=== PATIENT | female | born 1970 | race Caucasian/White ===

== ENCOUNTER 2021-12-26 13:38 | Inpatient (IN) | payer BC ==
[2021-12-26 14:05] LABS: #Lymphocytes 0.7 thou/uL (1.20-3.40); #Monocytes 0.7 thou/uL (0.11-0.59); %Monocytes 5.1 % (0.0-10.0); %Neutrophils 89.9 % (42.0-75.0); Hemoglobin 13.6 g/dL (12.0-16.0); Mean Corpuscular HGB CONC 33.9 g/dL (32.0-36.0); Mean Corpuscular Hemoglobin 32.2 pg (27.0-31.0); Mean Corpuscular Volume 94.8 fL (78.0-98.0); Platelet Count 163 thou/uL (130-400); RBC Distribution Width 11.4 % (11.5-14.5); Red Blood Cell (RBC) Count 4.21 mill/uL (4.20-5.40); White Blood Cell (WBC) Count 14.4 thou/uL (4.8-10.8)
[2021-12-26 14:24] LABS: ALT (SGPT) 20 U/L (8-55); AST (SGOT) 20 U/L (5-34); Alkaline Phosphatase 101 U/L (40-110); Anion Gap 15 mmol/L (10-20); BUN (Urea Nitrogen) 17 mg/dL (9.8-20.1); Bilirubin, Total 1.4 mg/dL (0.2-1.2); Calc. Creatinine Clearance 0 mL/min (70-130); Calcium 9.2 mg/dL (7.8-10.44); Carbon Dioxide 24 mmol/L (22-29); Chloride 102 mmol/L (98-107); Estimated GFR 58; Globulin 2.8 g/dL (2.4-3.5); Glucose 135 mg/dL (70-105); Potassium 3.8 mmol/L (3.5-5.1); Protein, Total 6.8 g/dL (6.0-8.3); Sodium 137 mmol/L (136-145)
[2021-12-26 14:46] LABS: CKMB 0.6 ng/mL (0-6.6)
[2021-12-26] MEDS ORDERED: Morphine 4 MG/ML VIAL ONE (14:56)
[2021-12-26] MEDS ORDERED: Ondansetron PF 4 MG/2 ML Vial ONE (14:57)
[2021-12-26] MEDS ORDERED: Aspirin Chewable 81 MG TAB ONE (14:57)
[2021-12-26 14:59] LABS: Bacteria/HPF 4+ HPF (None Seen); Bilirubin Negative (Negative); Blood, Urine 2+ (Negative); Clarity Turbid (Clear); Glucose, Urine (Dipstick) Normal (Negative); Ketone, Urine 20 mg/dL (Negative); Leukocyte 500 Leu/uL (Negative); Nitrite Negative (Negative); Protein, Urine (Dipstick) 20 mg/dL (Neg-Trace); Specific Gravity, Urine 1.015 (1.002-1.036); Squamous Epithelial 0-3 HPF (0-3); Urobilinogen Normal mg/dL (Less than 2); WBC/HPF Greater than 50 HPF (0-3); pH, Urine 5.5 (5.0-9.0)
[2021-12-26] MEDS ORDERED: Senokot S 8.6-50 MG TAB PO PRN (15:21)
[2021-12-26] MEDS ORDERED: HYDROcodone/Acetaminophen 5/325 mg Tablet PO PRN (15:21)
[2021-12-26] MEDS ORDERED: cefTRIAXone\\ROCEPHIN 2 GM VIAL ONE (15:22)
[2021-12-26] MEDS ORDERED: Nitroglycerin 0.4 MG TAB (25 Tab Bottle) SL PRN (15:25)
[2021-12-26] MEDS ORDERED: Acetaminophen 500 MG TAB ONE (16:23)
[2021-12-26 17:31] LABS: Troponin I 0.057 ng/mL (< 0.028)
[2021-12-26] MEDS: Ketorolac Tromethamine 30 MG/ML VIAL IVP SCH (18:27)
[2021-12-26] MEDS: Famotidine 20 MG TAB PO SCH (20:19)
[2021-12-26] MEDS: Sodium Chloride 0.9% 1,000 ML IV SCH (20:30)
[2021-12-26 21:27] LABS: Troponin I 0.038 ng/mL (< 0.028)
[2021-12-27 00:08] VITALS: BMI 27.8
[2021-12-27] MEDS: Ketorolac Tromethamine 30 MG/ML VIAL IVP SCH ×5 (00:18→23:29)
[2021-12-27] MEDS: Acetaminophen 325 MG TAB PO PRN ×3 (00:37→23:29)
[2021-12-27 02:32] LABS: #Lymphocytes 0.6 thou/uL (1.20-3.40); #Monocytes 0.6 thou/uL (0.11-0.59); #Neutrophils 7.6 thou/uL (1.40-6.50); %Basophils 0.1 % (0.0-1.0); %Eosinophils 0.1 % (0.0-10.0); %Lymphocytes 6.5 % (21.0-51.0); %Monocytes 7.1 % (0.0-10.0); %Neutrophils 86.2 % (42.0-75.0); Hemoglobin 12.2 g/dL (12.0-16.0); Mean Corpuscular HGB CONC 33.9 g/dL (32.0-36.0); Mean Corpuscular Hemoglobin 32.8 pg (27.0-31.0); Mean Corpuscular Volume 96.6 fL (78.0-98.0); Mean Platelet Volume 8.2 fL (7.4-10.4); Platelet Count 128 thou/uL (130-400); RBC Distribution Width 11.5 % (11.5-14.5); Red Blood Cell (RBC) Count 3.71 mill/uL (4.20-5.40); White Blood Cell (WBC) Count 8.8 thou/uL (4.8-10.8)
[2021-12-27 03:09] LABS: Anion Gap 13 mmol/L (10-20); BUN (Urea Nitrogen) 15 mg/dL (9.8-20.1); Calc. Creatinine Clearance 72 mL/min (70-130); Calcium 8.4 mg/dL (7.8-10.44); Carbon Dioxide 20 mmol/L (22-29); Chloride 109 mmol/L (98-107); Estimated GFR 72; Glucose 130 mg/dL (70-105); Potassium 3.8 mmol/L (3.5-5.1); Sodium 138 mmol/L (136-145)
[2021-12-27] MEDS: Sodium Chloride 0.9% 1,000 ML IV SCH ×3 (04:24→20:56)
[2021-12-27] MEDS: Aspirin Chewable 81 MG TAB PO SCH (09:59)
[2021-12-27] MEDS: Carvedilol 6.25 MG TAB PO SCH ×2 (09:59→20:56)
[2021-12-27] MEDS: Famotidine 20 MG TAB PO SCH ×2 (10:00→20:56)
[2021-12-27] MEDS: Enoxaparin Sodium 40 MG/0.4 ML SYRINGE SC SCH (10:02)
[2021-12-27] MEDS: Ondansetron PF 4 MG/2 ML Vial IVP PRN (16:21)
[2021-12-27] MEDS: cefTRIAXone\\ROCEPHIN 1 GM in Sodium Chloride 0.9% 100 ML IVPB SCH (16:22)
[2021-12-27] MEDS ORDERED: Morphine 2 MG/ML VIAL SLOW IVP PRN (17:58)
[2021-12-28] MEDS ORDERED: Aspirin/APAP/Caffeine Tab (Excedrin Migraine) PO SCH ×2 (00:30→10:30)
[2021-12-28] MEDS: Sodium Chloride 0.9% 1,000 ML IV SCH (04:23)
[2021-12-28] MEDS: Ketorolac Tromethamine 30 MG/ML VIAL IVP SCH ×4 (05:37→23:13)
[2021-12-28] MEDS: Enoxaparin Sodium 40 MG/0.4 ML SYRINGE SC SCH (10:01)
[2021-12-28] MEDS: Aspirin Chewable 81 MG TAB PO SCH (10:02)
[2021-12-28] MEDS: Carvedilol 6.25 MG TAB PO SCH ×2 (10:02→20:53)
[2021-12-28] MEDS: Famotidine 20 MG TAB PO SCH ×2 (10:02→20:53)
[2021-12-28] MEDS ORDERED: Furosemide 40 MG/4 ML VIAL SLOW IVP SCH (10:45)
[2021-12-28] MEDS: Aspirin/APAP/Caffeine Tab (Excedrin Migraine) PO SCH ×2 (15:36→20:53)
[2021-12-28] MEDS: cefTRIAXone\\ROCEPHIN 1 GM in Sodium Chloride 0.9% 100 ML IVPB SCH (17:32)
[2021-12-28] MEDS: Guaifenesin DM 100-10/5 ML UDCUP PO PRN (20:54)
[2021-12-28] MEDS: Ondansetron PF 4 MG/2 ML Vial IVP PRN (23:13)
[2021-12-29 04:42] LABS: Anion Gap 13 mmol/L (10-20); BUN (Urea Nitrogen) 19 mg/dL (9.8-20.1); Calc. Creatinine Clearance 80 mL/min (70-130); Calcium 8.7 mg/dL (7.8-10.44); Carbon Dioxide 22 mmol/L (22-29); Chloride 107 mmol/L (98-107); Estimated GFR 81; Glucose 119 mg/dL (70-105); Potassium 3.3 mmol/L (3.5-5.1); Sodium 139 mmol/L (136-145)
[2021-12-29 05:02] LABS: Band 29 % (5-11); Lymphocytes 4 % (21-51); MDiff Complete? YES; Mean Corpuscular HGB CONC 34.3 g/dL (32.0-36.0); Mean Corpuscular Hemoglobin 32.7 pg (27.0-31.0); Mean Corpuscular Volume 95.3 fL (78.0-98.0); Mean Platelet Volume 9.5 fL (7.4-10.4); Neutrophil 67 % (42-75); Platelet Count 95 thou/uL (130-400); Platelet Morphology Comment Appears Adequate; RBC Distribution Width 11.5 % (11.5-14.5); RBC Morphology Normal; Red Blood Cell (RBC) Count 3.68 mill/uL (4.20-5.40); White Blood Cell (WBC) Count 8.2 thou/uL (4.8-10.8)
[2021-12-29] MEDS: Ketorolac Tromethamine 30 MG/ML VIAL IVP SCH ×4 (06:54→23:10)
[2021-12-29] MEDS: Famotidine 20 MG TAB PO SCH ×2 (09:25→21:53)
[2021-12-29] MEDS: Aspirin/APAP/Caffeine Tab (Excedrin Migraine) PO SCH ×3 (09:25→21:53)
[2021-12-29] MEDS: Carvedilol 6.25 MG TAB PO SCH ×2 (09:25→21:53)
[2021-12-29] MEDS: Aspirin Chewable 81 MG TAB PO SCH (09:25)
[2021-12-29] MEDS ORDERED: Potassium Chloride 20 MEQ TAB PO SCH (10:15)
[2021-12-29] MEDS: Guaifenesin DM 100-10/5 ML UDCUP PO PRN (13:39)
[2021-12-29] MEDS ORDERED: Iopamidol 370 76% 100 ML VIAL ONE (13:56)
[2021-12-29] MEDS: Azithromycin 500 MG in Sodium Chloride 0.9% 250 ML 250 ML IVPB SCH (15:15)
[2021-12-29] MEDS: Ondansetron PF 4 MG/2 ML Vial IVP PRN ×2 (16:13→21:53)
[2021-12-29] MEDS: cefTRIAXone\\ROCEPHIN 1 GM in Sodium Chloride 0.9% 100 ML IVPB SCH (17:25)
[2021-12-29 21:46] LABS: Legionella Urinary Ag Negative (Negative); Strep pneumo Urine Ag NEGATIVE (NEGATIVE)
[2021-12-30 04:44] LABS: Anion Gap 12 mmol/L (10-20); BUN (Urea Nitrogen) 16 mg/dL (9.8-20.1); Calc. Creatinine Clearance 86 mL/min (70-130); Calcium 8.4 mg/dL (7.8-10.44); Carbon Dioxide 23 mmol/L (22-29); Chloride 108 mmol/L (98-107); Estimated GFR 88; Glucose 107 mg/dL (70-105); Potassium 3.9 mmol/L (3.5-5.1); Sodium 139 mmol/L (136-145)
[2021-12-30 05:11] LABS: #Eosinphils 0.1 thou/uL (0.0-0.7); #Lymphocytes 0.9 thou/uL (1.20-3.40); #Monocytes 0.8 thou/uL (0.11-0.59); #Neutrophils 6.5 thou/uL (1.40-6.50); %Basophils 0.2 % (0.0-1.0); %Eosinophils 0.7 % (0.0-10.0); %Lymphocytes 10.2 % (21.0-51.0); %Monocytes 9.9 % (0.0-10.0); Hemoglobin 11.4 g/dL (12.0-16.0); Mean Corpuscular Hemoglobin 32.5 pg (27.0-31.0); Mean Corpuscular Volume 95.4 fL (78.0-98.0); Mean Platelet Volume 10.1 fL (7.4-10.4); Platelet Count 78 thou/uL (130-400); RBC Distribution Width 11.8 % (11.5-14.5); Red Blood Cell (RBC) Count 3.51 mill/uL (4.20-5.40); White Blood Cell (WBC) Count 8.3 thou/uL (4.8-10.8)
[2021-12-30] MEDS: Ketorolac Tromethamine 30 MG/ML VIAL IVP SCH ×3 (05:13→14:34)
[2021-12-30] MEDS: Aspirin/APAP/Caffeine Tab (Excedrin Migraine) PO SCH ×2 (09:29→14:40)
[2021-12-30] MEDS: Famotidine 20 MG TAB PO SCH ×2 (09:30→21:48)
[2021-12-30] MEDS: Aspirin Chewable 81 MG TAB PO SCH (09:30)
[2021-12-30] MEDS: Carvedilol 6.25 MG TAB PO SCH ×2 (09:30→21:34)
[2021-12-30] MEDS: Ondansetron PF 4 MG/2 ML Vial IVP PRN ×2 (09:39→21:34)
[2021-12-30] MEDS: Azithromycin 500 MG in Sodium Chloride 0.9% 250 ML 250 ML IVPB SCH ×3 (14:40→21:34)
[2021-12-30] MEDS ORDERED: Aspirin/APAP/Caffeine Tab (Excedrin Migraine) PO PRN (17:22)
[2021-12-30] MEDS: Acetaminophen 325 MG TAB PO PRN (21:35)
[2021-12-30] MEDS: cefTRIAXone\\ROCEPHIN 1 GM in Sodium Chloride 0.9% 100 ML IVPB SCH (22:45)
[2021-12-31 05:23] LABS: #Eosinphils 0.1 thou/uL (0.0-0.7); #Lymphocytes 1.3 thou/uL (1.20-3.40); #Neutrophils 6.6 thou/uL (1.40-6.50); %Basophils 0.3 % (0.0-1.0); %Eosinophils 1.3 % (0.0-10.0); %Lymphocytes 14.1 % (21.0-51.0); %Monocytes 11.3 % (0.0-10.0); %Neutrophils 72.9 % (42.0-75.0); Hemoglobin 11.8 g/dL (12.0-16.0); Mean Corpuscular HGB CONC 34.2 g/dL (32.0-36.0); Mean Corpuscular Hemoglobin 32.5 pg (27.0-31.0); Mean Platelet Volume 10.1 fL (7.4-10.4); Platelet Count 122 thou/uL (130-400); RBC Distribution Width 11.9 % (11.5-14.5); Red Blood Cell (RBC) Count 3.63 mill/uL (4.20-5.40)
[2021-12-31] MEDS: Carvedilol 6.25 MG TAB PO SCH (09:00)
[2021-12-31] MEDS: Famotidine 20 MG TAB PO SCH (09:01)
[2021-12-31 11:39] VITALS: BP 144/73; TEMP 98.7
== END 2021-12-31 12:13 | disposition home or self-care (01) | DRG 871 ==
LOC: ERS 13:38 → ERHOLD 15:16 → 2NO 19:30
PROVIDERS: ADMIT Family Medicine; ATTEND Family Medicine
DX: A41.51 Sepsis due to Escherichia coli [E. coli] (principal); I21.A1 Myocardial infarction type 2; J81.0 Acute pulmonary edema; J15.9 Unspecified bacterial pneumonia; J96.01 Acute respiratory failure with hypoxia; N10 Acute pyelonephritis; N20.0 Calculus of kidney; Z20.822 Contact with and (suspected) exposure to COVID-19; I10 Essential (primary) hypertension; I25.10 Atherosclerotic heart disease of native coronary artery without angina pectoris; G43.909 Migraine, unspecified, not intractable, without status migrainosus; D69.6 Thrombocytopenia, unspecified; Z79.899 Other long term (current) drug therapy; Z90.710 Acquired absence of both cervix and uterus; Z87.442 Personal history of urinary calculi
CPT/HCPCS: 36415; 71045; 71275; 74176; 80048; 80053; 81003; 81015; 82553; 83605; 84145; 84484; 85025; 85379; 86140; 87040; 87070; 87077; 87086; 87186; 87205; 87449; 87899; 93005; 93306; 93970; 94760; J0456; J0696; J1650; J1885; J1940; J2270; J2405; J3490; J7050; Q9967; U0003; U0005

== ENCOUNTER 2022-01-11 15:57 | Outpatient (CLI) | payer BC ==
[2022-01-11 18:10] LABS: Bilirubin Neg (Negative); Blood, Urine 10 (Negative); Clarity Clear (Clear); Glucose, Urine (Dipstick) Normal (Negative); Ketone, Urine Negative (Negative); Leukocyte 500 (Negative); Nitrite Negative (Negative); Protein, Urine (Dipstick) Negative (Neg-Trace); Specific Gravity, Urine 1.015 (1.002-1.036); Urobilinogen Normal mg/dL (Less than 2)
[2022-01-11 18:41] LABS: Bacteria/HPF None Seen HPF (None Seen); RBC/HPF 0-3 HPF (0-3); Squamous Epithelial 0-3 HPF (0-3)
== END 2022-01-11 15:58 | disposition home or self-care (01) ==
LOC: LABBT 15:57
PROVIDERS: ATTEND Urology
DX: Z01.812 Encounter for preprocedural laboratory examination (principal); N20.0 Calculus of kidney; Z20.822 Contact with and (suspected) exposure to COVID-19
CPT/HCPCS: 81001; 87086; 87811

== ENCOUNTER 2022-01-16 06:06 | Day surgery (SDC) | payer BC ==
[2022-01-15 10:33] VITALS: BMI 26.4
[2022-01-16] MEDS ORDERED: Iopamidol 45 ML ONE (06:59)
[2022-01-16] MEDS ORDERED: Midazolam HCl 2 mg/2 ml Vial ONE (07:14)
[2022-01-16] MEDS ORDERED: Fentanyl 100 MCG/2 ML VIAL ONE ×2 (07:14→09:20)
[2022-01-16] MEDS ORDERED: HYDROmorphone 0.5 MG/0.5 ML SYRINGE ONE (07:24)
[2022-01-16] MEDS ORDERED: Levofloxacin 500 mg/D5W 100 ml Premix Bag ONE (07:27)
[2022-01-16] MEDS ORDERED: Dexamethasone 20 MG/5 ML VIAL ONE (07:31)
[2022-01-16] MEDS ORDERED: Ondansetron PF 4 MG/2 ML Vial ONE ×2 (07:31→09:09)
[2022-01-16] MEDS ORDERED: Rocuronium Bromide 10 MG/ML (10ML VIAL) ONE (07:31)
[2022-01-16] MEDS ORDERED: Lidocaine 1% PF 5 ML VIAL ONE (07:31)
[2022-01-16] MEDS ORDERED: Glycopyrrolate 0.2 MG/ML 5 ML SYRINGE ONE (07:31)
[2022-01-16] MEDS ORDERED: PROPOFOL 200 MG/20 ML VIAL ONE (07:31)
[2022-01-16] MEDS ORDERED: Ketorolac Tromethamine 30 MG/ML VIAL ONE ×2 (07:31→08:57)
[2022-01-16] MEDS ORDERED: SUGAMMADEX SODIUM 200 MG/2 ML VIAL ONE (08:30)
[2022-01-16] MEDS ORDERED: Phenazopyridine HCl 100 MG TAB ONE ×2 (08:57)
[2022-01-16] MEDS ORDERED: Oxybutynin 5 MG TAB ONE (08:57)
[2022-01-16] MEDS ORDERED: Promethazine HCl 25 MG/ML VIAL ONE (10:20)
== END 2022-01-16 12:00 | disposition home or self-care (01) ==
LOC: SDC 06:06
PROVIDERS: ATTEND Urology
PROC: 0TC38ZZ Extirpation of Matter from Right Kidney Pelvis, Via Natural or Artificial Opening Endoscopic (ICD-10-PCS; principal; 2022-01-16)
PROC: 0TC48ZZ Extirpation of Matter from Left Kidney Pelvis, Via Natural or Artificial Opening Endoscopic (ICD-10-PCS; principal; 2022-01-16)
PROC: 0T788DZ Dilation of Bilateral Ureters with Intraluminal Device, Via Natural or Artificial Opening Endoscopic (ICD-10-PCS; principal; 2022-01-16)
DX: N20.0 Calculus of kidney (principal); Z79.2 Long term (current) use of antibiotics; Z79.899 Other long term (current) drug therapy; Z91.018 Allergy to other foods
CPT/HCPCS: 74420; 82365; 88300; C2617; J1100; J1170; J1885; J1956; J2250; J2405; J2550; J2704; J2710; J3010; Q9967